=== PATIENT | female | born 1965 | race Two or more races ===

== ENCOUNTER 2019-04-05 20:37 | Emergency (ER) | payer SELFPAY ==
[~2019-04-05] VITALS: Ht 180.3 cm; Wt 95.3 kg
[2019-04-05] MEDS: ONDANSETRON ODT 4 MG TAB.RAPDIS SL ONE (21:24)
[2019-04-05] MEDS ORDERED: ONDANSETRON ODT 4 MG TAB.RAPDIS ONE (21:26)
--- NOTE | 2019-04-05 21:26 | NUR ---
Patient taken to CT at this time.
[2019-04-05] MEDS ORDERED: HYDROCODONE/APAP 10-325 MG TABLET ONE (22:00)
[2019-04-05] MEDS: HYDROCODONE/APAP 10-325 MG TABLET PO ONE (22:02)
--- NOTE | 2019-04-05 22:22 | NUR ---
Patient demanded to step outside of the ER to speak on the phone to her children. ER MD is aware.
--- NOTE | 2019-04-05 22:47 | NUR ---
Patient in bed, awaiting results for CT/Xray
--- NOTE | 2019-04-05 22:54 | NUR ---
Spoke to [facility] radiology , they will expedite the read on imaging.
--- NOTE | 2019-04-05 23:15 | NUR ---
Patient discharged to home in stable conditon. Written and verbal after care instructions given. Patient verbalizes understanding of instructions. Ambulated from ER with stable gait. All belongings with patient. VSS
[2019-04-05 23:16] VITALS: BP 121/77
== END 2019-04-05 23:16 | disposition home or self-care (01) ==
LOC: ER 20:37
DX: S16.1XXA Strain of muscle, fascia and tendon at neck level, initial encounter (principal); S39.012A Strain of muscle, fascia and tendon of lower back, initial encounter; S29.012A Strain of muscle and tendon of back wall of thorax, initial encounter; M25.511 Pain in right shoulder; F17.290 Nicotine dependence, other tobacco product, uncomplicated; Z71.6 Tobacco abuse counseling; W01.0XXA Fall on same level from slipping, tripping and stumbling without subsequent striking against object, initial encounter; Y93.89 Activity, other specified; Y92.89 Other specified places as the place of occurrence of the external cause; Y99.8 Other external cause status
CPT/HCPCS: 72100; 72125; 73030; A4663; Q0162